=== PATIENT | female | born 2000 | race Caucasian/White ===

== ENCOUNTER 2023-02-06 09:16 | Inpatient (IN) ==
[2023-02-06] MEDS ORDERED: miSOPROStoL 50 MCG TAB PO ONE (09:36)
[2023-02-06] MEDS ORDERED: LIDOCAINE 1% LOCAL 20 ML VIAL INFIL PRN (09:36)
[2023-02-06] MEDS ORDERED: OXYTOCIN 30 UNITS/500 ML BAG IV PRN ×3 (09:36→22:57)
--- NOTE | 2023-02-06 09:36 | History & Physical Report ---
Date of Service February 06, 2023 Assessment & Plan (1) PROM (premature rupture of membranes): Plan: - Admit to L&D due to patient having PROM w/o contractions. - Start pit at 2 and increase by 2. - Covid and CBC ordered - Will order UDS given + marijuana test previously during . - Consulted anesthesiology for epidural placement. History of Present Illness Chief Complaint: PROM Primary Care Provider: Frederick Espino PA-C at 40 w 3/7d confirmed via LMP. Here for PROM. Complications with this include vaping and marijuana use. EIF ECHO. Has been attending OB appointments regularly. Currently taking vitamin. Contractions: none. Fluid or Blood loss: Mucosal fluid this morning at 0700. Movement: active Labs - Blood type: O+ - Antibody screen: negative - H.1 - Hct: 34.3 - Plt: 359 - Rubella: immune - VDRL/RPR: nonreactive - Gonorrhea: negative - Chlamydia: negative - HIV: negative - HbSAg: negative - GBS: negative - Glucose tolerance x 2 Allergies Allergy/AdvReac Type Severity Reaction Status Date / Time No Known Allergies Allergy Verified 02/01/23 11:16 Home Medications Medication Instructions Recorded Confirmed Type prenat.vits,gifty,qsw-ckus-leezq 1 tab PO DAILY 08/09/22 02/06/23 History Patient History Medical History Varicella vaccination Surgical History S/P wisdom tooth extraction S/P wrist surgery Family History (Updated 08/09/22 @ 10:00 by Ema Prajapati) Grandfather (Maternal) Heart disease Denies family history of Ovarian cancer Breast cancer Colorectal cancer Social History (Updated 08/09/22 @ 10:02 by Ema Prajapati) Smoking Status: Never smoker Tobacco Type: E-cigarettes / Vaping Do You Dip or Chew Tobacco: No; Hx Alcohol Use: No Hx Substance Use: Yes Last Used Substance Other:: August 2022 Preferred Language: Indonesian Communication Ability: Effective Equine Intern Required: No Beliefs That Will Affect Care: None marital status: Single marital status details: ruba Carpenter(26) [phone] Current Living Situation: Spouse Current Living Situation Comment: lives with fob, roomate, cat-fob changing litter current occupational status: employed current occupation: [employer] cook Other Information That Helps Us Care for You: No Feels Safe at Home: Yes Safety Concerns: Feels Safe At This Time Assistive Devices: None Review of Systems Denies fever, chills, sweats Denies shortness of breath, difficulty breathing, chest pain, palpitations, chest pressure. Denies breast pain. Denies dysuria. Denies headache or changes in vision. Physical Exam Physical Exam: General: Alert, oriented. No acute distress. Cardiac: Regular rate and rhythm, no murmurs/rubs/gallops. Respiratory: Clear to auscultation bilaterally a/p, no wheezes/rales/rhonchi. No increased work of breathing. Symmetrical chest rise. No respiratory distress. Abdomen: Gravid; Cat 1 FHTs; Position: Cephalic presentation Pelvic: Dilation 1cm; Effacement 50; Station -[address] Leone Lower Extremities: No lower extremity edema or swelling. No deep calf pain. Cadence's negative bilaterally Resident Activity Tracking Resident Involvement: Resident Care Provided Care Provided: OB Delivery
[2023-02-06 10:07] LABS: Hematocrit (blood only) 40.8 % (37.0-47.0); Hemoglobin 14.2 g/dl (12.0-16.0); Mean Corpuscular Hemoglobin 30.7 pg (25.0-34.0); Mean Corpuscular Hgb Conc 34.8 g/dL (32.0-36.0); Mean Corpuscular Volume 88.3 fL (80.0-100.0); Platelet Count 246 K/uL (130-400); RDW Coefficient of Variation 13.7 % (11.5-14.5); RDW Standard Deviation 43.9 fL (36.4-46.3); Red Blood Count 4.62 M/uL (4.20-5.40); White Blood Count 14.55 K/ul (4.8-10.8)
[2023-02-06] MEDS: LACTATED RINGER'S 1,000 ML IV PRN ×4 (10:24→21:13)
[2023-02-06 12:52] LABS: Amphetamines+Metham, Urine Neg (Neg); Barbiturates, Urine Neg (Neg); Benzodiazepine, Urine Neg (Neg); Cocaine, Urine Neg (Neg); MDMA (Ecstacy), Urine Neg (Neg); Methadone, Urine Neg (Neg); Opiate, Urine Neg (Neg); Phencyclidine, Urine Neg (Neg)
[2023-02-06] MEDS ORDERED: BUPIVACAINE 0.25% PF 30 ML VIAL ONE (16:22)
[2023-02-06] MEDS ORDERED: ePHEDrine sulfate 50 MG/ML AMP ONE (16:22)
[2023-02-06] MEDS ORDERED: LIDOCAINE 2%/EPINEPHRINE 1:200,000 20 ML PF ONE (16:22)
[2023-02-06] MEDS ORDERED: fentaNYL citrate PF 100 MCG/2 ML VIAL ONE (16:22)
[2023-02-06] MEDS ORDERED: SODIUM CHLORIDE 0.9% PF INJ 10 ML VIAL ONE (16:22)
[2023-02-06] MEDS ORDERED: fentaNYL 2MCG/ML ROPIVACAINE 1.25MG/ML 100 ML BAG EPI ONE (16:23)
--- NOTE | 2023-02-06 16:38 | Anesthesiology Consultation ---
Date of Service February 06, 2023 Assessment & Plan (1) Encounter for pre-operative examination: Chart Review Chart Review: Acceptable Risk for Labor Epidural History Height/Weight Height: 5 ft 11 in Weight: 102.965 kg Allergies Allergy/AdvReac Type Severity Reaction Status Date / Time No Known Allergies Allergy Verified 02/01/23 11:16 Medications Home Medications Medication Instructions Recorded Confirmed Last Taken prenat.vits,gifty,nxc-prts-rnlil 1 tab PO DAILY 08/09/22 02/06/23 02/05/23 Active Medications Generic Name Dose Route Start Last Admin Trade Name Freq PRN Reason Stop Dose Admin Lactated Ringer's 1,000 mls @ 125 mls/hr 02/06/23 09:36 02/06/23 15:51 Lr IV 02/08/23 09:35 999 mls/hr .Q8H PRN Administration L&D Protocol Protocol Oxytocin 30 units in 500 mls @ 8 mls/hr 02/06/23 09:44 02/06/23 13:10 Pitocin IV 02/08/23 09:43 0.48 units/hr .Q24H PRN 8 mls/hr Labor Induction/Augmentation Titration Protocol 0.48 UNITS/HR Past Medical History Medical History Varicella vaccination Past Family History Family History Grandfather (Maternal) Heart disease Denies family history of Ovarian cancer Breast cancer Colorectal cancer Past Surgical History Surgical History S/P wisdom tooth extraction S/P wrist surgery Social History Smoking Status: Never smoker Do You Dip or Chew Tobacco: No Hx Alcohol Use: No Hx Substance Use: Yes substance use type: does not use and marijuana Last Used Substance Other:: August 2022 Physical Exam Vital Signs Last Vital Signs Temp 36.7 C 02/06/23 15:00 Pulse 70 02/06/23 16:34 Resp 18 02/06/23 15:30 BP 135/81 02/06/23 16:31 Pulse Ox 99 02/06/23 16:34 Testing Laboratory Results 02/06/23 09:44
[2023-02-06] MEDS ORDERED: ONDANSETRON INJ 2 MG/ML 2 ML VIAL IV PRN (17:14)
[2023-02-06] MEDS ORDERED: ePHEDrine sulfate 50 MG/ML AMP IV PRN (17:14)
[2023-02-06] MEDS ORDERED: fentaNYL 2MCG/ML ROPIVACAINE 1.25MG/ML 100 ML BAG EPI PRN (17:14)
[2023-02-06] MEDS ORDERED: LIDOCAINE 2%/EPINEPHRINE 1:200,000 20 ML PF EPI STA (17:14)
[2023-02-06] MEDS ORDERED: BUPIVACAINE 0.25% PF 30 ML VIAL EPI STA (17:14)
[2023-02-06] MEDS ORDERED: NALOXONE HCL 0.4 MG/1 ML VIAL/CARP IV PRN (17:14)
[2023-02-06] MEDS ORDERED: fentaNYL citrate PF 100 MCG/2 ML VIAL EPI STA (17:14)
[2023-02-06] MEDS ORDERED: SODIUM CHLORIDE 0.9% PF INJ 10 ML VIAL EPI STA (17:14)
[2023-02-06] MEDS ORDERED: SODIUM CHLORIDE 0.9% PF INJ 10 ML VIAL EPI PRN (17:14)
[2023-02-06] MEDS ORDERED: fentaNYL citrate PF 100 MCG/2 ML VIAL EPI PRN (17:14)
[2023-02-06] MEDS ORDERED: LIDOCAINE 2% MPF LOCAL 5 ML VIAL EPI PRN (17:14)
[2023-02-06] MEDS ORDERED: ROPIVACAINE 0.5% PF 5 MG/ML 20 ML VIAL EPI PRN (17:14)
[2023-02-06] MEDS ORDERED: NALOXONE HCL 1 MG in SODIUM CHLORIDE 0.9% 1000ML 1,000 ML IV PRN (17:14)
[2023-02-06] MEDS ORDERED: BUPIVACAINE 0.25% PF 30 ML VIAL EPI PRN (17:14)
--- NOTE | 2023-02-06 20:03 | Labor Progress Brief Note ---
Date of Service February 06, 2023 Subjective Comfortable with epidural. Having bladder cath when I entered room. Assessment & Plan (1) PROM (premature rupture of membranes): Plan: Continue to titrate pitocin now that it's resumed after prior stoppage. (Was held due to decels in the immediate aftermath of epidural, which were likely due to regional hypotension.) Admission and Anticipated Discharge Date Admission Date: February 06, 2023 Physical Exam Genitourinary: /-2 Ballottable vertex Fluid is clear FHT 125 mod octavia ?early decels, +scalp stim and accels [place] Q2-5 irreg, pit @ 2 currently Results & Data Vital Signs (Past 12 Hours) Vital Signs Temp Pulse Resp BP Pulse Ox 02/06/23 09:50 98.2 F 20 02/06/23 19:59 98 02/06/23 19:59 77 02/06/23 19:54 98 02/06/23 19:54 68 02/06/23 19:55 68 02/06/23 19:55 124/71 02/06/23 19:49 98 02/06/23 19:49 74 02/06/23 19:45 72 02/06/23 19:45 122/69 02/06/23 19:44 98 02/06/23 19:44 77 02/06/23 19:39 98 02/06/23 19:39 78 02/06/23 19:34 97 02/06/23 19:34 73 02/06/23 19:35 76 02/06/23 19:35 121/71 02/06/23 19:29 97 02/06/23 19:29 71 02/06/23 19:26 68 02/06/23 19:26 110/58 L 02/06/23 19:24 96 02/06/23 19:24 73 02/06/23 19:19 98 02/06/23 19:19 73 02/06/23 19:15 75 02/06/23 19:15 120/66 02/06/23 19:14 98 02/06/23 19:14 79 02/06/23 19:09 98 02/06/23 19:09 70 02/06/23 19:04 98 02/06/23 19:04 93 H 02/06/23 19:05 95 H 02/06/23 19:05 137/85 02/06/23 19:00 18 02/06/23 19:00 18 02/06/23 19:00 98 02/06/23 19:00 18 02/06/23 19:00 97.9 F 18 02/06/23 18:59 98 02/06/23 18:59 78 02/06/23 18:54 99 02/06/23 18:54 93 H 02/06/23 18:55 94 H 02/06/23 18:55 128/66 02/06/23 18:49 98 02/06/23 18:49 97 H 02/06/23 18:45 98 H 02/06/23 18:45 124/63 02/06/23 18:44 99 02/06/23 18:44 100 H 02/06/23 18:00 18 02/06/23 18:00 18 02/06/23 18:39 98 02/06/23 18:39 81 02/06/23 18:30 20 02/06/23 18:30 20 02/06/23 18:36 85 02/06/23 18:36 127/80 02/06/23 18:34 98 02/06/23 18:34 101 H 02/06/23 18:29 97 02/06/23 18:29 81 02/06/23 18:25 67 02/06/23 18:25 104/56 L 02/06/23 18:24 98 02/06/23 18:24 67 02/06/23 18:19 99 02/06/23 18:19 70 02/06/23 18:17 68 02/06/23 18:17 118/57 L 02/06/23 18:14 98 02/06/23 18:14 63 02/06/23 18:09 99 02/06/23 18:09 77 02/06/23 18:04 98 02/06/23 18:04 63 02/06/23 18:05 72 02/06/23 18:05 108/59 L 02/06/23 17:59 99 02/06/23 17:59 75 02/06/23 17:54 98 02/06/23 17:54 66 02/06/23 17:53 61 02/06/23 17:53 110/56 L 02/06/23 17:51 65 06/27/23 17:51 106/56 L 02/06/23 17:49 99 02/06/23 17:49 66 02/06/23 17:49 63 02/06/23 17:49 106/59 L 02/06/23 17:47 64 02/06/23 17:47 109/55 L 02/06/23 17:45 61 02/06/23 17:45 102/58 L 02/06/23 17:44 98 02/06/23 17:44 68 02/06/23 17:44 68 02/06/23 17:44 107/53 L 02/06/23 17:30 20 02/06/23 17:30 98.1 F 20 02/06/23 17:41 63 02/06/23 17:41 107/58 L 02/06/23 17:39 98 02/06/23 17:39 78 02/06/23 17:39 104/59 L 02/06/23 17:37 63 02/06/23 17:37 103/55 L 02/06/23 17:35 63 02/06/23 17:35 104/57 L 02/06/23 17:34 99 02/06/23 17:34 67 02/06/23 17:33 69 02/06/23 17:33 112/60 02/06/23 17:31 85 02/06/23 17:31 116/68 02/06/23 17:29 99 02/06/23 17:29 79 02/06/23 17:29 73 02/06/23 17:29 114/60 02/06/23 17:28 68 02/06/23 17:28 116/57 L 02/06/23 17:24 100 02/06/23 17:24 70 02/06/23 17:25 76 02/06/23 17:25 119/59 L 02/06/23 17:23 70 02/06/23 17:23 115/59 L 02/06/23 17:21 75 02/06/23 17:21 112/58 L 02/06/23 17:19 100 02/06/23 17:19 69 02/06/23 17:18 63 02/06/23 17:18 108/58 L 02/06/23 17:17 65 02/06/23 17:17 114/62 02/06/23 17:14 100 02/06/23 17:14 60 02/06/23 17:15 60 02/06/23 17:15 112/57 L 02/06/23 17:13 62 02/06/23 17:13 113/59 L 02/06/23 17:11 65 02/06/23 17:11 104/55 L 02/06/23 17:09 100 02/06/23 17:09 69 02/06/23 17:09 124/65 02/06/23 17:06 65 02/06/23 17:06 129/65 02/06/23 17:04 97 02/06/23 17:04 85 02/06/23 17:04 106/65 02/06/23 17:03 111 H 02/06/23 17:03 97/56 L 02/06/23 16:59 98 02/06/23 16:59 100 H 02/06/23 17:00 100 H 02/06/23 17:00 108/59 L 02/06/23 16:59 98 H 02/06/23 16:59 118/65 02/06/23 16:57 86 02/06/23 16:57 132/81 02/06/23 16:54 98 02/06/23 16:54 89 02/06/23 16:49 100 02/06/23 16:49 83 02/06/23 16:44 99 02/06/23 16:44 64 02/06/23 16:39 99 02/06/23 16:39 76 02/06/23 16:34 99 02/06/23 16:34 70 02/06/23 16:31 73 02/06/23 16:31 135/81 02/06/23 16:29 99 02/06/23 16:29 72 02/06/23 16:24 99 02/06/23 16:24 72 02/06/23 16:19 99 02/06/23 16:19 67 02/06/23 16:19 140/87 02/06/23 15:30 18 02/06/23 15:30 18 02/06/23 13:01 98.1 F 02/06/23 15:00 18 02/06/23 15:00 98.1 F 18 02/06/23 15:29 72 02/06/23 15:29 131/85 02/06/23 14:00 18 02/06/23 14:00 18 02/06/23 14:30 20 02/06/23 14:30 20 02/06/23 13:46 70 02/06/23 13:46 121/70 02/06/23 13:30 20 02/06/23 13:30 20 02/06/23 13:00 20 02/06/23 13:00 20 02/06/23 12:30 20 02/06/23 12:30 20 02/06/23 12:30 74 02/06/23 12:30 126/73 02/06/23 12:00 20 02/06/23 12:00 20 02/06/23 10:59 98.2 F 02/06/23 11:00 16 02/06/23 11:00 16 02/06/23 10:30 20 02/06/23 10:30 20 02/06/23 11:08 72 02/06/23 11:08 131/86 02/06/23 10:23 93 H 02/06/23 10:23 121/82 02/06/23 09:40 98.2 F 106 H 127/82 Coding Level of Care Code None Diagnoses PROM (premature rupture of membranes) O42.90
--- NOTE | 2023-02-06 21:20 | Labor Progress Brief Note ---
Date of Service February 06, 2023 Subjective Patient comfortable. Able to reposition and was in the process of being moved to opposite side when I entered room. Assessment & Plan (1) PROM (premature rupture of membranes): Plan: Labor is progressing. Notable Cat 2 tracing but does exhibit + scalp stim and has reassuring variability throughout. Will continue resuscitative measures and close observation. Admission and Anticipated Discharge Date Admission Date: February 06, 2023 Physical Exam Genitourinary: FHT noted to be Cat 2 (baseline 100-110 with mod octavia. decels that used to be early now looking more prolonged, +accels) which prompted me to come to patient room. Found patient with pitocin turned off, O2 mask in place, and nursing attendants at bedside. [place] Difficult to trace with patient being actively repositioned. Tried knee- chest while I was present, then back to R lateral and then L lateral which seemed best. Cervix 7/90/-1 with notable descent and head now well applied, no longer ballottable. Results & Data Vital Signs (Past 12 Hours) Vital Signs Temp Pulse Resp BP Pulse Ox 02/06/23 09:50 98.2 F 20 02/06/23 21:14 100 02/06/23 21:14 76 02/06/23 21:09 100 02/06/23 21:09 69 02/06/23 21:04 97 02/06/23 21:04 76 02/06/23 21:05 81 02/06/23 21:05 127/79 02/06/23 20:59 97 02/06/23 20:59 65 02/06/23 20:55 97 02/06/23 20:55 18 02/06/23 20:55 98.6 F 18 02/06/23 20:54 98 02/06/23 20:54 61 02/06/23 20:55 64 02/06/23 20:55 128/80 02/06/23 20:49 98 02/06/23 20:49 75 02/06/23 20:44 96 02/06/23 20:44 77 02/06/23 20:45 67 02/06/23 20:45 126/74 02/06/23 20:39 98 02/06/23 20:39 66 02/06/23 20:36 63 02/06/23 20:36 123/75 02/06/23 20:34 98 02/06/23 20:34 85 02/06/23 20:35 70 02/06/23 20:35 118/77 02/06/23 20:29 96 02/06/23 20:29 87 02/06/23 20:25 77 02/06/23 20:25 124/75 02/06/23 20:24 98 02/06/23 20:24 71 02/06/23 20:19 98 02/06/23 20:19 73 02/06/23 20:14 95 02/06/23 20:14 67 02/06/23 20:15 65 02/06/23 20:15 112/59 L 02/06/23 20:09 96 02/06/23 20:09 65 02/06/23 20:04 96 02/06/23 20:04 75 02/06/23 20:05 74 02/06/23 20:05 111/61 02/06/23 19:59 98 02/06/23 19:59 77 02/06/23 19:54 98 02/06/23 19:54 68 02/06/23 19:55 68 02/06/23 19:55 124/71 02/06/23 19:49 98 02/06/23 19:49 74 02/06/23 19:45 72 02/06/23 19:45 122/69 02/06/23 19:44 98 02/06/23 19:44 77 02/06/23 19:39 98 02/06/23 19:39 78 02/06/23 19:34 97 02/06/23 19:34 73 02/06/23 19:35 76 02/06/23 19:35 121/71 02/06/23 19:29 97 02/06/23 19:29 71 02/06/23 19:26 68 02/06/23 19:26 110/58 L 02/06/23 19:24 96 02/06/23 19:24 73 02/06/23 19:19 98 02/06/23 19:19 73 02/06/23 19:15 75 02/06/23 19:15 120/66 02/06/23 19:14 98 02/06/23 19:14 79 02/06/23 19:09 98 02/06/23 19:09 70 02/06/23 19:04 98 02/06/23 19:04 93 H 02/06/23 19:05 95 H 02/06/23 19:05 137/85 02/06/23 19:00 18 02/06/23 19:00 18 02/06/23 19:00 98 02/06/23 19:00 18 02/06/23 19:00 97.9 F 18 02/06/23 18:59 98 02/06/23 18:59 78 02/06/23 18:54 99 02/06/23 18:54 93 H 02/06/23 18:55 94 H 02/06/23 18:55 128/66 02/06/23 18:49 98 02/06/23 18:49 97 H 02/06/23 18:45 98 H 02/06/23 18:45 124/63 02/06/23 18:44 99 02/06/23 18:44 100 H 02/06/23 18:00 18 02/06/23 18:00 18 02/06/23 18:39 98 02/06/23 18:39 81 02/06/23 18:30 20 02/06/23 18:30 20 02/06/23 18:36 85 02/06/23 18:36 127/80 02/06/23 18:34 98 02/06/23 18:34 101 H 02/06/23 18:29 97 02/06/23 18:29 81 02/06/23 18:25 67 02/06/23 18:25 104/56 L 02/06/23 18:24 98 02/06/23 18:24 67 02/06/23 18:19 99 02/06/23 18:19 70 02/06/23 18:17 68 02/06/23 18:17 118/57 L 02/06/23 18:14 98 02/06/23 18:14 63 02/06/23 18:09 99 02/06/23 18:09 77 02/06/23 18:04 98 02/06/23 18:04 63 02/06/23 18:05 72 02/06/23 18:05 108/59 L 02/06/23 17:59 99 02/06/23 17:59 75 02/06/23 17:54 98 02/06/23 17:54 66 02/06/23 17:53 61 02/06/23 17:53 110/56 L 02/06/23 17:51 65 02/06/23 17:51 106/56 L 02/06/23 17:49 99 02/06/23 17:49 66 02/06/23 17:49 63 02/06/23 17:49 106/59 L 02/06/23 17:47 64 02/06/23 17:47 109/55 L 02/06/23 17:45 61 02/06/23 17:45 102/58 L 02/06/23 17:44 98 02/06/23 17:44 68 02/06/23 17:44 68 02/06/23 17:44 107/53 L 02/06/23 17:30 20 02/06/23 17:30 98.1 F 20 02/06/23 17:41 63 02/06/23 17:41 107/58 L 02/06/23 17:39 98 02/06/23 17:39 78 02/06/23 17:39 104/59 L 02/06/23 17:37 63 02/06/23 17:37 103/55 L 02/06/23 17:35 63 02/06/23 17:35 104/57 L 02/06/23 17:34 99 02/06/23 17:34 67 02/06/23 17:33 69 02/06/23 17:33 112/60 02/06/23 17:31 85 02/06/23 17:31 116/68 02/06/23 17:29 99 02/06/23 17:29 79 02/06/23 17:29 73 02/06/23 17:29 114/60 02/06/23 17:28 68 02/06/23 17:28 116/57 L 02/06/23 17:24 100 02/06/23 17:24 70 02/06/23 17:25 76 02/06/23 17:25 119/59 L 02/06/23 17:23 70 02/06/23 17:23 115/59 L 02/06/23 17:21 75 02/06/23 17:21 112/58 L 02/06/23 17:19 100 02/06/23 17:19 69 02/06/23 17:18 63 02/06/23 17:18 108/58 L 02/06/23 17:17 65 02/06/23 17:17 114/62 02/06/23 17:14 100 02/06/23 17:14 60 02/06/23 17:15 60 02/06/23 17:15 112/57 L 02/06/23 17:13 62 02/06/23 17:13 113/59 L 02/06/23 17:11 65 02/06/23 17:11 104/55 L 02/06/23 17:09 100 02/06/23 17:09 69 02/06/23 17:09 124/65 02/06/23 17:06 65 02/06/23 17:06 129/65 02/06/23 17:04 97 02/06/23 17:04 85 02/06/23 17:04 106/65 02/06/23 17:03 111 H 02/06/23 17:03 97/56 L 02/06/23 16:59 98 02/06/23 16:59 100 H 02/06/23 17:00 100 H 02/06/23 17:00 108/59 L 02/06/23 16:59 98 H 02/06/23 16:59 118/65 02/06/23 16:57 86 02/06/23 16:57 132/81 02/06/23 16:54 98 02/06/23 16:54 89 02/06/23 16:49 100 02/06/23 16:49 83 02/06/23 16:44 99 02/06/23 16:44 64 02/06/23 16:39 99 02/06/23 16:39 76 02/06/23 16:34 99 02/06/23 16:34 70 02/06/23 16:31 73 02/06/23 16:31 135/81 02/06/23 16:29 99 02/06/23 16:29 72 02/06/23 16:24 99 02/06/23 16:24 72 02/06/23 16:19 99 02/06/23 16:19 67 02/06/23 16:19 140/87 02/06/23 15:30 18 02/06/23 15:30 18 02/06/23 13:01 98.1 F 02/06/23 15:00 18 02/06/23 15:00 98.1 F 18 02/06/23 15:29 72 02/06/23 15:29 131/85 02/06/23 14:00 18 02/06/23 14:00 18 02/06/23 14:30 20 02/06/23 14:30 20 02/06/23 13:46 70 02/06/23 13:46 121/70 02/06/23 13:30 20 02/06/23 13:30 20 02/06/23 13:00 20 02/06/23 13:00 20 02/06/23 12:30 20 02/06/23 12:30 20 02/06/23 12:30 74 02/06/23 12:30 126/73 02/06/23 12:00 20 02/06/23 12:00 20 02/06/23 10:59 98.2 F 02/06/23 11:00 16 02/06/23 11:00 16 02/06/23 10:30 20 02/06/23 10:30 20 02/06/23 11:08 72 02/06/23 11:08 131/86 02/06/23 10:23 93 H 02/06/23 10:23 121/82 02/06/23 09:40 98.2 F 106 H 127/82 Coding Level of Care Code None Diagnoses PROM (premature rupture of membranes) O42.90
--- NOTE | 2023-02-06 22:25 | Delivery Summary ---
Vaginal Delivery Summary Date of Service February 06, 2023 Vaginal Delivery Summary DIAGNOSES: 1. Mustafa intrauterine at 40w3d gestation. 2. PROM/IOL. 3. Group B Streptococcus Neg. PROCEDURE: Spontaneous vaginal delivery without laceration. SURGEON: Michelle Leone MD. RESOURCE MANAGER: None. ESTIMATED BLOOD LOSS: 250 mL. COMPLICATIONS: None. PLACENTA: Spontaneous and intact with a 3-vessel cord. DISPOSITION: Stable to labor and delivery. DESCRIPTION: The patient pushed well and brought the head to in DOA position. The 's head was allowed to deliver with contraction force and no further active pushing, with the perineum protected during this time. There was 1 loop of nuchal cord. The right shoulder was anterior. The shoulders and body delivered without any difficulty, and the infant was placed on the maternal abdomen. It was vigorous and moving all extremities, and making respiratory efforts. The cord was doubly clamped by the MD and then cut by the FOB. The placenta delivered spontaneously and was noted to be intact and with a 3VC. The cervix, vagina and perineum were examined and were found to be without defect requiring repair. The fundus was firm and lochia minimal immediately after delivery[place] [facility] [place] [facility] [place] Vaginal Delivery Codes: 03990 global code for the antepartum, delivery, and post-
[2023-02-06] MEDS ORDERED: BENZOCAINE 20% AER SPR 82.5 GM CAN EXT PRN (22:57)
[2023-02-06] MEDS ORDERED: ACETAMINOPHEN 325 MG TAB PO PRN (22:57)
[2023-02-06] MEDS ORDERED: oxyCODONE/ACETAMINOPHEN 5mg/325mg TAB PO PRN (22:57)
[2023-02-06] MEDS ORDERED: IBUPROFEN 600 MG TAB PO PRN (22:57)
[2023-02-06] MEDS ORDERED: HYDROCORTISONE ACETATE 25 MG SUPP PR PRN (22:57)
[2023-02-06] MEDS ORDERED: DIPHTHERIA/TETANUS/PERTUSSIS Vaccine (Tdap, Age 7+yrs) 0.5mL SYR/VL IM ONE (22:57)
--- NOTE | 2023-02-07 07:20 | Obstetrical Progress Note ---
Date of Service February 07, 2023 Assessment & Plan (1) state: Recovering well Subjective Ambulation: ambulating normally Voiding: no voiding problems Passing Gas:: Yes Diet Tolerance:: regular diet Lochia:: Small Feeding Type:: breast feeding Physical Exam Constitutional WD/WN, vitals as above Eyes PERRL, conjunctivae normal, anicteric sclerae Neck normal visual inspection Respiratory normal respiratory effort and able to speak in complete sentences; no respiratory distress and no labored breathing Cardiovascular Rate/Rhythm: regular rate and regular rhythm Extremities: no edema Chest (Breasts) Chest: normal inspection of chest Gastrointestinal (Abdomen) Inspection/Auscultation: abdomen normal to inspection Soft, postgravid Psychiatric A+Ox3, euthymic affect Genitourinary OB Exam Abdomen: + fundal height Fundus: + firm and + relation to umbilicus (fundus just below umbilicus); not tender Results & Data Vital Signs (Past 12 Hours) Vital Signs Temp Pulse Pulse Resp BP BP Pulse Ox 02/07/23 03:28 98.1 F 78 16 123/78 98 02/07/23 01:05 97.5 F L 80 20 137/85 95 02/07/23 00:25 18 146/91 H 02/06/23 23:55 20 02/06/23 23:25 20 02/06/23 23:10 18 02/06/23 22:55 18 02/06/23 22:40 20 02/06/23 22:26 18 02/07/23 00:26 83 146/91 H 02/06/23 23:57 64 02/06/23 23:57 132/79 02/06/23 23:42 76 02/06/23 23:42 140/81 02/06/23 23:26 66 02/06/23 23:26 138/79 02/06/23 23:26 79 02/06/23 23:26 161/81 H 02/06/23 23:15 72 02/06/23 23:15 127/64 02/06/23 23:05 145/72 H 02/06/23 22:55 81 02/06/23 22:55 142/86 H 02/06/23 22:45 89 02/06/23 22:45 142/81 H 02/06/23 22:26 85 02/06/23 22:26 138/80 02/06/23 22:19 99 02/06/23 22:19 85 02/06/23 22:14 99 02/06/23 22:14 104 H 02/06/23 22:09 100 02/06/23 22:09 71 02/06/23 22:06 92 H 02/06/23 22:06 138/94 02/06/23 22:04 100 02/06/23 22:04 94 H 02/06/23 21:59 100 02/06/23 21:59 79 02/06/23 21:56 60 02/06/23 21:56 129/66 02/06/23 21:54 100 02/06/23 21:54 77 02/06/23 21:49 100 02/06/23 21:49 84 02/06/23 21:46 78 02/06/23 21:46 131/75 02/06/23 21:44 100 02/06/23 21:44 76 02/06/23 21:39 100 02/06/23 21:39 74 02/06/23 21:35 69 02/06/23 21:35 113/63 02/06/23 21:34 100 02/06/23 21:34 68 02/06/23 21:29 99 02/06/23 21:29 79 02/06/23 21:25 75 02/06/23 21:25 115/60 02/06/23 21:24 100 02/06/23 21:24 77 02/06/23 21:19 100 02/06/23 21:19 70 02/06/23 21:16 67 02/06/23 21:16 119/63 02/06/23 21:14 100 02/06/23 21:14 76 02/06/23 21:09 100 02/06/23 21:09 69 02/06/23 21:04 97 02/06/23 21:04 76 02/06/23 21:05 81 02/06/23 21:05 127/79 02/06/23 20:59 97 02/06/23 20:59 65 02/06/23 20:55 97 02/06/23 20:55 18 02/06/23 20:55 98.6 F 18 02/06/23 20:54 98 02/06/23 20:54 61 02/06/23 20:55 64 02/06/23 20:55 128/80 02/06/23 20:49 98 02/06/23 20:49 75 02/06/23 20:44 96 02/06/23 20:44 77 02/06/23 20:45 67 02/06/23 20:45 126/74 02/06/23 20:39 98 02/06/23 20:39 66 02/06/23 20:36 63 02/06/23 20:36 123/75 02/06/23 20:34 98 02/06/23 20:34 85 02/06/23 20:35 70 02/06/23 20:35 118/77 02/06/23 20:29 96 02/06/23 20:29 87 02/06/23 20:25 77 02/06/23 20:25 124/75 02/06/23 20:24 98 02/06/23 20:24 71 02/06/23 20:19 98 02/06/23 20:19 73 02/06/23 20:14 95 02/06/23 20:14 67 02/06/23 20:15 65 02/06/23 20:15 112/59 L 02/06/23 20:09 96 02/06/23 20:09 65 02/06/23 20:04 96 02/06/23 20:04 75 02/06/23 20:05 74 02/06/23 20:05 111/61 02/06/23 19:59 98 02/06/23 19:59 77 02/06/23 19:54 98 02/06/23 19:54 68 02/06/23 19:55 68 02/06/23 19:55 124/71 02/06/23 19:49 98 02/06/23 19:49 74 02/06/23 19:45 72 02/06/23 19:45 122/69 02/06/23 19:44 98 02/06/23 19:44 77 02/06/23 19:39 98 02/06/23 19:39 78 02/06/23 19:34 97 02/06/23 19:34 73 02/06/23 19:35 76 02/06/23 19:35 121/71 02/06/23 19:29 97 02/06/23 19:29 71 02/06/23 19:26 68 02/06/23 19:26 110/58 L 02/06/23 19:24 96 02/06/23 19:24 73 O2 Del Method 02/07/23 03:28 Room Air 02/07/23 01:05 Room Air 02/07/23 00:25 02/06/23 23:55 02/06/23 23:25 02/06/23 23:10 02/06/23 22:55 02/06/23 22:40 02/06/23 22:26 02/07/23 00:26 02/06/23 23:57 02/06/23 23:57 02/06/23 23:42 02/06/23 23:42 02/06/23 23:26 02/06/23 23:26 02/06/23 23:26 02/06/23 23:26 02/06/23 23:15 02/06/23 23:15 02/06/23 23:05 02/06/23 22:55 02/06/23 22:55 02/06/23 22:45 02/06/23 22:45 02/06/23 22:26 02/06/23 22:26 02/06/23 22:19 02/06/23 22:19 02/06/23 22:14 02/06/23 22:14 02/06/23 22:09 02/06/23 22:09 02/06/23 22:06 02/06/23 22:06 02/06/23 22:04 02/06/23 22:04 02/06/23 21:59 02/06/23 21:59 02/06/23 21:56 02/06/23 21:56 02/06/23 21:54 02/06/23 21:54 02/06/23 21:49 02/06/23 21:49 02/06/23 21:46 02/06/23 21:46 02/06/23 21:44 02/06/23 21:44 02/06/23 21:39 02/06/23 21:39 02/06/23 21:35 02/06/23 21:35 02/06/23 21:34 02/06/23 21:34 02/06/23 21:29 02/06/23 21:29 02/06/23 21:25 02/06/23 21:25 02/06/23 21:24 02/06/23 21:24 02/06/23 21:19 02/06/23 21:19 02/06/23 21:16 02/06/23 21:16 02/06/23 21:14 02/06/23 21:14 02/06/23 21:09 02/06/23 21:09 02/06/23 21:04 02/06/23 21:04 02/06/23 21:05 02/06/23 21:05 02/06/23 20:59 02/06/23 20:59 02/06/23 20:55 02/06/23 20:55 02/06/23 20:55 02/06/23 20:54 02/06/23 20:54 02/06/23 20:55 02/06/23 20:55 02/06/23 20:49 02/06/23 20:49 02/06/23 20:44 02/06/23 20:44 02/06/23 20:45 02/06/23 20:45 02/06/23 20:39 02/06/23 20:39 02/06/23 20:36 02/06/23 20:36 02/06/23 20:34 02/06/23 20:34 02/06/23 20:35 02/06/23 20:35 02/06/23 20:29 02/06/23 20:29 02/06/23 20:25 02/06/23 20:25 02/06/23 20:24 02/06/23 20:24 02/06/23 20:19 02/06/23 20:19 02/06/23 20:14 02/06/23 20:14 02/06/23 20:15 02/06/23 20:15 02/06/23 20:09 02/06/23 20:09 02/06/23 20:04 02/06/23 20:04 02/06/23 20:05 02/06/23 20:05 02/06/23 19:59 02/06/23 19:59 02/06/23 19:54 02/06/23 19:54 02/06/23 19:55 02/06/23 19:55 02/06/23 19:49 02/06/23 19:49 02/06/23 19:45 02/06/23 19:45 02/06/23 19:44 02/06/23 19:44 02/06/23 19:39 02/06/23 19:39 02/06/23 19:34 02/06/23 19:34 02/06/23 19:35 02/06/23 19:35 02/06/23 19:29 02/06/23 19:29 02/06/23 19:26 02/06/23 19:26 02/06/23 19:24 02/06/23 19:24
[2023-02-07 07:42] LABS: Hematocrit (blood only) 37.5 % (37.0-47.0); Hemoglobin 13.4 g/dl (12.0-16.0); Mean Corpuscular Hemoglobin 31.3 pg (25.0-34.0); Mean Corpuscular Hgb Conc 35.7 g/dL (32.0-36.0); Mean Corpuscular Volume 87.6 fL (80.0-100.0); Mean Platelet Volume 12.2 fL (9.4-12.4); Platelet Count 234 K/uL (130-400); RDW Coefficient of Variation 13.9 % (11.5-14.5); RDW Standard Deviation 43.7 fL (36.4-46.3); Red Blood Count 4.28 M/uL (4.20-5.40); White Blood Count 25.13 K/ul (4.8-10.8)
[2023-02-07] MEDS ORDERED: PRENATAL VITAMIN 1 TAB PO SCH (08:00)
[2023-02-07] MEDS: DOCUSATE SODIUM 100 MG CAP PO SCH ×2 (09:54→20:41)
--- NOTE | 2023-02-07 11:02 | Anesthesia Procedure Note ---
Date of Service February 07, 2023 Anesthesia Post Epidural Note Vital Signs Vital Signs: Temp Pulse Resp BP Pulse Ox O2 Del Method 97.9 F 84 18 122/77 96 Room Air 02/07/23 07:50 02/07/23 07:50 02/07/23 07:50 02/07/23 07:50 02/07/23 07:50 02/07/23 07:50 Notes Mental Status: alert / awake / arousable and participated in evaluation Nausea / Vomiting: adequately controlled Pain: adequately controlled Airway Patency, RR, SpO2: stable & adequate BP & HR: stable & adequate Hydration State: stable & adequate Neuraxial Anesthesia: was administered and sensory block is resolving Anesthetic Complications: no major complications apparent and Pt Satisfied with anesthetic care Epidural: Removed without complications and With tip intact
--- NOTE | 2023-02-08 06:58 | Obstetrical Progress Note ---
Date of Service <Sourav Samayoa DO - Last Filed: 02/08/23 07:34> February 08, 2023 Assessment & Plan <Sourav Samayoa DO - Last Filed: 02/08/23 07:34> (1) state: - Feels well today. Eating well, voiding well, ambulating well. - Pain well controlled with ibuprofen 600mg Q4H PRN - Routine care -- OOB, ambulation, diet progression as tolerated - After discharge will have 6 week follow-up with Dr. Leone. - Will D/C today. Day #:: 2 <Yvette Gamble MD, FACOG - Last Filed: 02/08/23 08:11> (1) state: Subjective <Sourav Samayoa DO - Last Filed: 02/08/23 07:34> Ambulation: ambulating normally Voiding: no voiding problems Passing Gas:: Yes Diet Tolerance:: regular diet Lochia:: Small Feeding Type:: breast feeding Current Pain Level(1-10): 1 Review of Systems Denies fever, chills, sweats Denies shortness of breath, difficulty breathing, chest pain, palpitations, chest pressure. Denies breast pain. Denies dysuria. Denies headache or changes in vision. Physical Exam <Sourav Samayoa DO - Last Filed: 02/08/23 07:34> General: Alert, oriented. No acute distress. Cardiac: Regular rate and rhythm, no murmurs/rubs/gallops. Respiratory: Clear to auscultation bilaterally a/p, no wheezes/rales/rhonchi. No increased work of breathing. Symmetrical chest rise. No respiratory distress. Abdomen: Soft, nontender, nondistended. Bowel sounds present. Uterus: Uterine fundus firm, palpable 2 cm below umbilicus. Lower Extremities: No lower extremity edema or swelling. No deep calf pain. Cadence's negative bilaterally. Results & Data <Sourav Samayoa DO - Last Filed: 02/08/23 07:34> Vital Signs (Past 12 Hours) Vital Signs Temp Pulse Resp BP Pulse Ox O2 Del Method 02/07/23 23:15 36.6 C 90 16 133/83 96 Room Air 02/07/23 19:00 36.6 C 81 16 117/75 96 Room Air <Yvette Gamble MD, FACOG - Last Filed: 02/08/23 08:11> Co-Signing Physician Notes Resident Physician Supervision Note: I interviewed and examined the patient. Discussed with Dr. Samayoa and agree with findings and plan as documented in the note. Any exceptions or clarifications are listed here: [None] Documented By: Yvette Gamble MD, FACOG Resident Activity Tracking <Sourav Samayoa, - Last Filed: 02/08/23 07:34> Resident Involvement: Resident Care Provided Care Provided: OB Delivery
[2023-02-08 07:03] LABS: Hematocrit (blood only) 36.8 % (37.0-47.0); Hemoglobin 12.7 g/dl (12.0-16.0)
== END 2023-02-08 12:00 | disposition home or self-care (01) | DRG 806 ==
LOC: OPB 09:16 → 4S1 09:17 → 4E2 02-07 00:38